=== PATIENT | female | born 1960 | race American Indian/Alaskan Native ===

== ENCOUNTER 2019-01-22 13:04 | Emergency (ER) | payer SELFPAY ==
[2019-01-22 13:10] VITALS: BP 151/87
== END 2019-01-22 13:15 | disposition left against medical advice (07) ==
LOC: ED 13:04
DX: R11.2 Nausea with vomiting, unspecified (principal); Z53.21 Procedure and treatment not carried out due to patient leaving prior to being seen by health care provider
CPT/HCPCS: 82962